=== PATIENT | male | born 1985 | race Two or more races ===

== ENCOUNTER 2018-11-22 17:46 | Emergency (ER) | payer OTHER ==
[~2018-11-22] VITALS: Ht 177.8 cm; Wt 99.8 kg
[2018-11-22 20:28] VITALS: BP 144/93
[2018-11-22] MEDS ORDERED: FLUORESCEIN SOD 1 MG TEST STRIP LEFTEYE ONE (21:45)
[2018-11-22] MEDS ORDERED: TETRACAINE HCL 0.5% OPTH(EYE) SOLN 4ML LEFTEYE ONE (21:45)
== END 2018-11-22 22:20 | disposition home or self-care (01) ==
LOC: ER 17:59
DX: H53.142 Visual discomfort, left eye (principal); H57.12 Ocular pain, left eye